=== PATIENT | female | born 1990 | race Caucasian/White ===

== ENCOUNTER 2021-09-17 17:48 | Emergency (ER) | payer OTHER, SELFPAY ==
--- NOTE | ~2021-09-17 | XR_ITS ---
XR chest 2V DATE: 09/17/2021 19:05 INDICATION: Cough, shortness of breath. TECHNIQUE: PA and lateral views COMPARISON: None FINDINGS: Normal heart size. No hilar or mediastinal enlargement. No pulmonary infiltrate or consolid ation, pleural effusion or pulmonary vascular congestion or pneumothorax. Skeletal structures are unr emarkable. IMPRESSION: Negative chest Reviewed, dictated and finalized at location A. IMPRESSION: Negative chest
[2021-09-17 17:55] VITALS: BP 155/110; PULSE 98; RESP 20; TEMP 36.6; O2SAT 100
[2021-09-17 18:41] VITALS: RESP 18
[2021-09-17 18:46] LABS: Add Urine Microscopic? YES; Appearance Urine Clear (Clear); Bacteria Urine Trace /hpf; Bilirubin Urine Negative (Negative); Blood Urine Negative (Negative); Color Urine Yellow (Yellow); Glucose Urine UA Negative (Negative); Ketones Urine Negative (Negative); Leukocyte Esterase Ur Trace LEU/UL (Negative); Nitrate Urine Negative (Negative); Protein Urine Negative (Negative); RBC Urine 0-2 /hpf (0-2); Squamous Epithelial Cell Urine Few /hpf (Few); Urobilinogen Urine Negative mg/dL (<2.0); WBC Urine 0-3 /hpf
--- NOTE | 2021-09-17 18:46 | ECG_ITS ---
Measurements Intervals [place] Rate: 78 P: 55 PA: 149 QRS: 46 QRSD: 80 T: 52 QT: 391 QTc: 447 Interpretive Statements SINUS RHYTHM BORDERLINE ST-T WAVE ABNORMALITY- DIFFUSE LEADS BORDERLINE ECG Electronically Signed On 09-17-2021 20:04:09 CDT by Vlad Nair D.O.
--- NOTE | 2021-09-17 19:17 | PC.NURSE ---
Report received from ZEB Henning. Assumed care of patient at this time.
[2021-09-17 19:33] VITALS: BP 133/91; PULSE 68; RESP 20; O2SAT 98
[2021-09-17] MEDS: diazePAM (*CRX) 5 MG TABLET PO (19:33)
[2021-09-17 19:52] LABS: Alveolar/Arterial O2 Gradient 5.2 mmHg; Base Excess ABG 0.3 mEq/l (+/-2.0); Carboxyhemoglobin 0.2 % THb (0-2.0); Fractional Inspired Oxygen 21 %; HCO3 ABG 19.2 mEq/l (22.0-26.0); Methemoglobin ABG 0.3 %THb (0-1.5); Oxygen Content ABG 20.5 %vol (16.0-22.0); Oxyhemoglobin 97.8 % THb (90.0-100.0); PO2 ABG 121.1 mmHg (80.0-100.0); PO2 FiO2 Ratio Arterial Blood 5.77 %; Reduced Hemoglobin 1.7 %THb (0-5.0); Total Hemoglobin 14.8 g/dL (12.0-18.0)
[2021-09-17 19:53] LABS: Device ROOM AIR; Modified Allen's Test Pass; PCO2 ABG 19.6 mmHg (35.0-45.0); Site Drawn RIGHT RADIAL; pH ABG 7.608 (7.350-7.450)
--- NOTE | 2021-09-17 20:16 | ED.GENADULT ---
HPI - General Adult General Chief complaint: Unspecified Stated complaint: cant breath, facial tingling, hands tingling Time Seen by Provider: 09/17/21 18:56 Source: patient and RN notes reviewed Mode of arrival: ambulatory Limitations: no limitations History of Present Illness HPI narrative: This is a 31 year female with history of anxiety who presents for evaluation of feeling like she needs to take a deep breath. She started having symptoms on while she was at work. She is feeling like she can not breath and that she needs to take a deep breath. She has had similar symptoms intermittently over the past 10 years but her symptoms resolved by the next day. She denies chest pain, cough, nausea, vomiting or wheezing. She thinks it is worse when she tries to talk. She had some trouble sleeping yesterday . She was finally able to go to sleep last night at 10 pm and she woke up at 5 am. She was able to sleep the whole night with out orthopnea. She denies oral contraception pills, leg swelling or pain. She does report her hand and feet have been intermittently tingling from her breathing this fast. She has never sought treatment for these spells but she reports she is having panic attacks today due to this feeling. Related Data Home Medications Medication Instructions Recorded Confirmed levothyroxine [Synthroid] 112 mcg PO DAILY 09/17/21 09/17/21 Allergies Allergy/AdvReac Type Severity Reaction Status Date / Time No Known Allergies Allergy Verified 09/17/21 17:59 Review of Systems Review of Systems: All systems reviewed & are unremarkable except as noted in HPI and below PMFSH Past Medical History Medical History (Updated 09/18/21 @ 00:00 by Stone Fernandez) Hypothyroid Surgical History Surgical History (Updated 09/17/21 @ 20:23 by Deidra Funk MD) No significant past surgical history Social History Social History (Updated 09/17/21 @ 20:23 by Deidra Funk MD) Smoking status: Never smoker Exam Narrative: GENERAL: Well-appearing, well-nourished, and in no acute distress. HEAD: Normocephalic, atraumatic THROAT:Mucous membranes moist, Oropharynx normal without erythema, exudate, peritonsillar swelling or fluctuance NECK: Supple, without lymphadenopathy or mass HEART: Regular rate and rhythm. No murmur heard. Normal peripheral pulses. ABDOMEN: Soft, nontender, nondistended, normal active bowel sounds. No masses. No rebound or guarding, No organomegaly. EXTREMITIES: No edema, normal strength with full range of motion. SKIN: Warm, dry, normal color without rash NEURO: Alert and oriented x3. CN 2-12 grossly intact. No focal deficits. PSYCH: Normal mood and affect. Resp: Effort & Inspection: no audible wheezes, no grunting, no nasal flaring, no pursed lip breathing, no retractions, tachypneic and other (hyperventilating) Course Reevaluation(s) Reevaluation #1: PAtient states she is ready for discharge home. She is now breathing normal. Chest xray is normal, ABG shows hyperventilation. Chest xray is normal. She feels better after valium. Date: 09/17/21 Time: 20:49 Vital Signs Vital signs: Vital Signs Temperature 98 F 09/17/21 17:55 Pulse Rate 98 09/17/21 17:55 Respiratory Rate 20 09/17/21 17:55 Blood Pressure 155/110 H 09/17/21 17:55 Pulse Oximetry 100 09/17/21 17:55 Temperature 97.9 F 09/17/21 21:01 Pulse Rate 68 09/17/21 21:01 Respiratory Rate 20 09/17/21 21:01 Blood Pressure 130/93 H 09/17/21 21:01 Pulse Oximetry 100 09/17/21 21:01 Medical Decision Making Vital Signs Vital Signs: Vital Signs Temperature 98 F 09/17/21 17:55 Pulse Rate 98 09/17/21 17:55 Respiratory Rate 20 09/17/21 17:55 Blood Pressure 155/110 H 09/17/21 17:55 Pulse Oximetry 100 09/17/21 17:55 Temperature 97.9 F 09/17/21 21:01 Pulse Rate 68 09/17/21 21:01 Respiratory Rate 20 09/17/21 21:01 Blood Pressure 130/93 H
[2021-09-17 20:24] LABS: Basophils Absolute Auto 0.1 K/mm3 (0.0-0.1); Basophils Percent Auto 0.5 % (0.2-1.2); Eosinophils Absolute Auto 0.2 K/mm3 (0-0.3); Eosinophils Percent Auto 1.7 % (0-4.4); Hematocrit 40.9 % (37.0-47.0); Hemoglobin 14.2 g/dL (12.0-15.0); Immature Granulocyte Absolute 0.04 K/mm3 (0.00-0.031); Immature Granulocyte Percent A 0.4 % (0-0.5); Lymphocytes Absolute Auto 2.44 K/mm3 (0.9-3.2); Lymphocytes Percent Auto 22.1 % (18.3-44.2); Mean Corpuscular HGB Conc 34.7 g/dl (32-36); Mean Corpuscular Hemoglobin 29.8 pg (26-34); Mean Corpuscular Volume 85.7 fl (80-100); Monocytes Absolute Auto 0.8 K/mm3 (0.1-0.6); Monocytes Percent Auto 7.2 % (2.6-8.5); Neutrophils Absolute Auto 7.5 K/mm3 (1.3-6.7); Neutrophils Percent Auto 68.1 % (45.5-73.1); Platelet Count Result 264 k/mm3 (150-375); Red Blood Count 4.77 M/mm3 (4.2-5.4); Red Cell Distribution Width 11.8 % (11.5-14.5)
[2021-09-17 20:39] LABS: Alanine Aminotransferase 35 U/L (4-35); Albumin Level 4.5 g/dL (3.5-5.1); Alkaline Phosphatase 87 U/L (38-126); Anion Gap 10 mmol/L (8-16); Aspartate Amino Transferase 32 U/L (14-36); Bilirubin,Total 0.4 mg/dL (0.2-1.3); Blood Urea Nitrogen 17 mg/dL (7-17); Calcium 9.5 mg/dL (8.4-10.2); Carbon Dioxide 24 mmol/L (22-30); Chloride 108 mmol/L (98-107); Estimated CRCL calculation 93 ml/min; Estimated Glomerular Filt Rate > 60; Glucose 100 mg/dL (65-110); Potassium 3.6 mmol/L (3.4-5.0); Sodium 142 mmol/L (137-145)
[2021-09-17 20:40] LABS: D Dimer 0.27 ug/mL (<0.48)
[2021-09-17 21:01] VITALS: BP 130/93; PULSE 68; RESP 20; TEMP 36.6; O2SAT 100
== END 2021-09-17 21:03 | disposition home or self-care (01) ==
PROVIDERS: Emergency Provider General Practice; PCP Physician Assistant
DX: F45.8 Other somatoform disorders (principal); E03.9 Hypothyroidism, unspecified; R94.31 Abnormal electrocardiogram [ECG] [EKG]
CPT/HCPCS: 36415; 36600; 71046; 80053; 81001; 81025; 82375; 82805; 83050; 85025; 85380; 93005; 99283; A9270

== ENCOUNTER 2024-08-08 17:51 | Emergency (ER) | payer OTHER, SELFPAY ==
--- NOTE | ~2024-08-08 | XR_ITS ---
EXAMINATION: XR chest 2V Exam Date/Time: 08/08/2024 19:15 CDT HISTORY: cough, night sweats Comparison: 09/17/2021. RESULT: Lines, tubes, and devices: None. Lungs and pleura: Subtle reticular nodular opacities in the left lower lung with mild cuffing. Cardiomediastinal silhouette: Stable. Other: No acute osseous or upper abdominal finding. IMPRESSION: Poorly opacities may represent respiratory bronchiolitis. Atypical infection should also be considere d in the differential. Reviewed, dictated and finalized at location K. IMPRESSION: Poorly opacities may represent respiratory bronchiolitis. Atypical infection sh ould also be considered in the differential.
[2024-08-08 18:03] VITALS: BP 145/82; PULSE 93; RESP 19; TEMP 36.3; O2SAT 96
--- NOTE | 2024-08-08 18:36 | ED.URI ---
HPI - URI/Sore Throat General Chief Complaint: Upper Respiratory Infection Stated Complaint: SOB Time Seen by Provider: 08/08/24 18:36 Source: patient, RN notes reviewed and old records reviewed Mode of arrival: ambulatory Limitations: no limitations History of Present Illness HPI Narrative: Patient presents with complaints of cough that has been present for approximately 1 week. She reports that cough has been causing her to become incontinent of urine. She has had night sweats. She is unsure if she has had any fevers throughout the day. She has been taking multiple [id number] remedies without much relief. She denies any shortness of breath. She has no other concerns today. Related Data Home Medications Medication Instructions Recorded Confirmed levothyroxine 112 mcg tablet 112 mcg PO DAILY 09/17/21 08/08/24 (Synthroid) enalapril maleate 10 mg tablet 10 mg PO DAILY 08/08/24 08/08/24 Allergies Allergy/AdvReac Type Severity Reaction Status Date / Time No Known Allergies Allergy Verified 08/08/24 18:06 Review of Systems Review of Systems: All systems reviewed & are unremarkable except as noted in HPI and below Constitutional: Constitutional: Reports no additional constitutional complaints ENT: Reports system reviewed and no additional complaints, except as documented Cardiovascular: Cardiovascular: Reports no additional cardiovascular complaints Respiratory: Respiratory: Reports no additional respiratory complaints, Reports chest congestion, Reports cough and Reports pain with cough Gastrointestinal: Gastrointestinal: Reports no additional gastrointestinal complaints PMFSH Past Medical History Medical History Hypothyroid Surgical History Surgical History No significant past surgical history Social History Social History Smoking status: Never smoker Comments At the time of my signature, I reviewed and agree with the nursing past medical, surgical, social, and family history. There is no relevant family history pertinent to the patient complaint. Exam Const: General: cooperative, no acute distress, alert and awake Orientation/consciousness: oriented to person, oriented to place and oriented to time HENMT: Head: normal to inspection Ears: TM's normal bilaterally Mouth: Yes moist mucous membranes Throat: postnasal drainage Resp: Effort & Inspection: normal respiratory effort and able to speak in complete sentences Auscultation: clear to auscultation bilaterally, no crackles, no rales, no rhonchi, no wheezes and diminished lung sounds Cardio: Palpation: normal PMI Rate: regular rate Rhythm: regular rhythm Heart sounds: S1 normal heart sound present and S2 normal heart sound present Neuro: General: oriented to person, oriented to place and oriented to time Cranial nerves: Yes CN's II-XII intact bilaterally Psych: Appearance: grossly normal Thought process: Normal thought process present Insight: Good insight present (Psych) Judgement: Good judgement present (Psych) Course Course Level of Care: Express Care Visit Vital Signs Vital signs: Vital Signs Temperature 97.4 F L 08/08/24 18:03 Pulse Rate 93 08/08/24 18:03 Respiratory Rate 19 08/08/24 18:03 Blood Pressure 145/82 H 08/08/24 18:03 Pulse Oximetry 96 08/08/24 18:03 Oxygen Delivery Room Air 08/08/24 18:03 Temperature 97.4 F L 08/08/24 18:03 Pulse Rate 93 08/08/24 18:03 Respiratory Rate 19 08/08/24 18:03 Blood Pressure 145/82 H 08/08/24 18:03 Pulse Oximetry 96 08/08/24 18:03 Oxygen Delivery Room Air 08/08/24 18:03 Reviewed MDM - URI/Sore Throat MDM Narrative Medical decision making narrative: X-ray and exam consistent with pneumonia. Treat as same. Patient is nontoxic appearing. Stable for p.o. antibiotics at
== END 2024-08-08 19:45 | disposition home or self-care (01) ==
PROVIDERS: Emergency Provider Nurse Practitioner Family
DX: J18.1 Lobar pneumonia, unspecified organism (principal); E03.9 Hypothyroidism, unspecified
CPT/HCPCS: 71046; 99213; G0463